=== PATIENT | male | born 1960 | race Asian ===

== ENCOUNTER 2016-09-20 10:33 | Outpatient (CLI) | payer OTHER ==
[2016-09-20 10:56] LABS: PLATELET COUNT 199 K/uL (142-355)
== END 2016-09-20 19:03 | disposition home or self-care (01) ==
LOC: LABW 10:33
PROVIDERS: Internal Medicine
DX: D64.89 Other specified anemias (principal); E78.00 Pure hypercholesterolemia, unspecified
CPT/HCPCS: 36415; 80053; 80061; 84443; 85027

== ENCOUNTER 2016-12-26 09:26 | Outpatient (CLI) | payer OTHER ==
[2016-12-26 09:56] LABS: PLATELET COUNT 200 K/uL (142-355)
[2016-12-26 10:14] LABS: POTASSIUM 3.9 mmol/L (3.6-5.2)
== END 2016-12-26 10:30 | disposition home or self-care (01) ==
LOC: LABW 09:26
PROVIDERS: Internal Medicine
DX: D64.89 Other specified anemias (principal); E78.00 Pure hypercholesterolemia, unspecified
CPT/HCPCS: 36415; 80053; 80061; 84443; 85027